=== PATIENT | male | born 1955 | race Caucasian/White ===

== ENCOUNTER 2019-05-21 14:00 | Outpatient (CLI) | payer MEDICARE, OTHER, SELFPAY ==
[2019-05-21 15:25] LABS: Prothrombin Time 13.3 Seconds (11.1-14.7)
[2019-05-21 15:26] LABS: Partial Thromboplastin Time 36.3 SECONDS (22.3-36.8)
== END 2019-05-21 14:01 | disposition home or self-care (01) ==
PROVIDERS: PCP Physician Assistant; Visit Provider Urology
DX: N28.89 Other specified disorders of kidney and ureter (principal)
CPT/HCPCS: 36415; 85610; 85730; 86850; 86900; 86901; 87086

== ENCOUNTER 2019-06-01 11:02 | Inpatient (IN) | payer MEDICARE, OTHER, SELFPAY ==
[2019-05-21 15:06] VITALS: BP 131/80; PULSE 82; RESP 18; TEMP 36.6; O2SAT 94; BMI 29.3
[2019-06-01] VITALS (11 sets, daily range): BP systolic 130–153; BP diastolic 72–88; PULSE 60–88; RESP 14–20; TEMP 36.1–36.8; O2SAT 96–100; BMI 28.8; BMI 29.9
[2019-06-01] MEDS: LACTATED RINGERS 1,000 ML 30 ML IV CONT ×2 (06:40→10:38)
--- NOTE | 2019-06-01 06:55 | WPDANESEPPF ---
Anes - Initial Pre Proc Eval Procedure: Operation Date: 06/01/19 07:30 Proposed Procedures p Hand-Assisted Laparoscopic Right Radical Nephrectomy, Possible Open - Luis Pono MD Date/Time: 06/01/19 06:55 Surgeon: Luis Poon MD Pre Op Diagnosis: Right Renal Mass Patient Data Age: 64 Gender: M Height: 5 ft 10 in Weight: 91.1 kg Last Vital Signs Temp 36.6 C 05/21/19 15:06 Pulse 82 05/21/19 15:06 Resp 18 05/21/19 15:06 BP 131/80 05/21/19 15:06 Pulse Ox 94 05/21/19 15:06 Allergies Allergy/AdvReac Type Severity Reaction Status Date / Time No Known Allergies Allergy Mild Verified 06/01/19 06:17 Home Medications Medication Instructions Recorded Confirmed Type fexofenadine [Caro Allergy] 180 mg PO DAILY 05/21/19 06/01/19 History lisinopril 20 mg PO DAILY 05/21/19 06/01/19 History pantoprazole 40 mg PO QAM 05/21/19 06/01/19 History pravastatin 20 mg PO DAILY 05/21/19 06/01/19 History ropinirole 1 mg PO BID 05/21/19 06/01/19 History zolpidem 10 mg PO HS 05/21/19 06/01/19 History Patient hx anesthesia problems: none Family hx anesthesia problems: none PMFSH Past Medical History Medical History GERD (gastroesophageal reflux disease) Hyperlipidemia Hypertension TRICIA (obstructive sleep apnea) Prostate cancer SVT (supraventricular tachycardia) Social History Social History Gender identity (if verbalized by the patient): Male Anes - Eval Final PreProcedure Day of Procedure 06/01/19 06:55 Heart: regular rate and rhythm Lungs: clear to auscultation Airway: Mallampati scale class 1 Neurological: alert and oriented Last oral intake: >/= 8 hours ASA classification: III Emergent: no Anesthetic plan: proceed Anesthesia type and monitoring: general ETT and standard monitoring Informed Consent: The patient's anesthetic plan and its attendant risks and benefits were discussed with the patient/family/POA. Questions were solicited and answers provided to the satisfaction of the patient/family/POA.
--- NOTE | 2019-06-01 07:22 | WPDHPUPDATE1 ---
History and Physical Update Update Date/Time: 06/01/19 07:22 History and Physical has been reviewed, including an updated exam of the patient. There are NO changes in the patient's condition. Risks, benefits, and alternatives have been discussed and questions answered. Patient agrees to proceed with procedure.
[2019-06-01] MEDS: ceFAZolin 2 GM/D5W 50 ML 2 GM/50 ML BAG IVPB (07:34)
[2019-06-01] MEDS: HEMOSTATIC MATRIX (SURGIFLO with THROMBIN) KIT 1 KIT XX (09:05)
--- NOTE | 2019-06-01 10:12 | P.OP_ITS ---
Procedure Note - Detailed Date of procedure: 06/01/19 Pre-op diagnosis: Right Renal Mass Post-op diagnosis: same Procedure performed: Hand assisted laparoscopic right nephrectomy Description of procedure: Patient was taken to the operative suite and correctly identified. Once general anesthesia was obtained he was placed in decubitus position right side up. All pressure points were padded. Sixteen Upper Sorbian Calvin had been placed. Incision was made just lateral and superior to the umbilicus. This was carried down to the rectus fascia which was incised. The peritoneal cavity was entered. GelPort was placed in abdomen insufflated to 15 mmHg pressure. Working ports were then placed in appropriate locations. There were 12 mm ports. A 5 mm port was placed just medial to the most superior port used for retraction of the liver. The white line of Toldt was incised and the colon was reflected medially. Duodenum was Kocherized. Patient's mass was located superiorly and posteriorly. We dissected the ureter off of the psoas muscle. We then worked our way up to the hilar area. The renal vein and artery was displaced inferiorly from the mass. We were able to isolate the artery and clipped it 3 times proximally and twice distally. It was transected. The vein was then transected using an endovascular staple. Was loosely attached anteriorly and thus was easily spared. Given that the mass was more posteriorly located we spared the adrenal gland. There was good hemostasis at this point time. All the other attachments were taken down. We placed to seal long with FloSeal and Surgicel over the hilar area and the adrenal area. All lap count needle count sponge counts were correct. Needed to extend the incision order remove the mass in its entirety. This is sent for pathologic review. Rectus fascia was closed using double looped PDS from both superiorly and inferiorly. We reapproximated the subcutaneous fat using 3 O chromic. Subcuticular stitches were then placed. Anesthetized the incisions with 1% lidocaine. Patient is taken recovery room stable condition. Anesthesia: GETA Surgeon: Luis Poon MD Estimated blood loss (mL): 50 Drains: No Packing: No Pathology: yes Complications: No immediate complications Condition: stable Disposition: PACU
[2019-06-01 13:04] LABS: Hemoglobin 14.4 g/dL (14.0-18.0)
--- NOTE | 2019-06-01 13:09 | ADMGEN ---
This patient, Dami Henderson, was admitted to [facility] Surg Room 324-02. Patient/family oriented to hospital policies and general routines including ID bracelet, bed and alarms, visiting hours, pain management, procedures, bathroom and other care routines, personal items, smoking policy, room service/diet, and visiting hours. Valuables list has been completed. Information on how to activate the Rapid Response Team has been discussed. Patient/Family are encouraged to report perceived risks to care and to ask questions if they do not understand what they are told or what they should do.
[2019-06-01 13:32] LABS: Blood Urea Nitrogen 16 mg/dL (9-20); Calcium 8.7 mg/dL (8.4-10.2); Carbon Dioxide 30 mmol/L (22-30); Chloride 102 mmol/L (98-107); Estimated CRCL calculation 52 ml/min; Estimated Glomerular Filt Rate 55; Glucose 150 mg/dL (75-110); Potassium 3.4 mmol/L (3.4-5.0); Sodium 137 mmol/L (137-145)
[2019-06-01] MEDS: DEXTROSE 5%/LACTATED RINGERS 1,000 ML 150 ML IV CONT (13:57)
[2019-06-01] MEDS: lisinopriL 20 MG TABLET PO (16:01)
[2019-06-01] MEDS: LORATADINE 10 MG TABLET PO (16:01)
[2019-06-01] MEDS: PRAVASTATIN SODIUM 20 MG TABLET PO (16:01)
[2019-06-01] MEDS: HYDROMORPHONE HCL 1 MG/ML INJ 0.5 MG IV PUSH (19:09)
[2019-06-01] MEDS: DOCUSATE SODIUM 100 MG CAPSULE PO (19:16)
--- NOTE | 2019-06-01 21:24 | PC.NURSE ---
Call initiated to Dr. Poon at 1445 requesting pain meds for range 0-6. Meds were available starting tomorrow which he said we could make available now.
[2019-06-01] MEDS: DEXTROSE 5%/LACTATED RINGERS 1,000 ML 100 ML IV CONT (21:42)
[2019-06-02 02:00] VITALS: BP 126/75; PULSE 70; RESP 20; TEMP 36.8; O2SAT 95
[2019-06-02 05:47] LABS: Basophils Percent Auto 0.2 % (0.2-1.2); Eosinophils Percent Auto 0.1 % (0-4.4); Hematocrit 37.3 % (42.0-52.0); Immature Granulocyte Absolute 0.04 K/mm3 (0.00-0.031); Immature Granulocyte Percent A 0.4 % (0-0.5); Lymphocytes Absolute Auto 1.01 K/mm3 (0.9-3.2); Lymphocytes Percent Auto 11.4 % (18.3-44.2); Mean Corpuscular HGB Conc 34.9 g/dl (32-36); Mean Corpuscular Hemoglobin 30.4 pg (26-34); Mean Corpuscular Volume 87.1 fl (80-100); Mean Platelet Volume 9.9 fl (7.4-10.4); Monocytes Absolute Auto 0.6 K/mm3 (0.1-0.6); Monocytes Percent Auto 6.5 % (2.6-8.5); Neutrophils Absolute Auto 7.2 K/mm3 (1.3-6.7); Neutrophils Percent Auto 81.4 % (45.5-73.1); Platelet Count Result 172 k/mm3 (150-375); Red Blood Count 4.28 M/mm3 (4.6-6.20); White Blood Count 8.9 K/mm3 (4.5-10.0)
[2019-06-02 06:00] VITALS: BP 114/66; PULSE 69; RESP 20; TEMP 37.1; O2SAT 94
[2019-06-02 06:02] LABS: Blood Urea Nitrogen 14 mg/dL (9-20); Calcium 8.2 mg/dL (8.4-10.2); Carbon Dioxide 29 mmol/L (22-30); Chloride 103 mmol/L (98-107); Estimated CRCL calculation 49 ml/min; Estimated Glomerular Filt Rate 51; Glucose 122 mg/dL (75-110); Potassium 3.8 mmol/L (3.4-5.0); Sodium 134 mmol/L (137-145)
[2019-06-02] MEDS: DEXTROSE 5%/LACTATED RINGERS 1,000 ML 100 ML IV CONT (08:23)
[2019-06-02] MEDS: LORATADINE 10 MG TABLET PO (08:24)
[2019-06-02] MEDS: PANTOPRAZOLE 40 MG TABLET PO (08:24)
[2019-06-02] MEDS: PRAVASTATIN SODIUM 20 MG TABLET PO (08:24)
[2019-06-02] MEDS: lisinopriL 20 MG TABLET PO (08:24)
[2019-06-02] MEDS: DOCUSATE SODIUM 100 MG CAPSULE PO (08:24)
--- NOTE | 2019-06-02 09:08 | P.PNAN_ITS ---
Anes - Prog Note Post-Op Date/Time: 06/02/19 09:08 Cardiovascular status: normal Respiratory status: normal Airway patency: baseline Mental status: baseline Post-Op hydration status: normal Vital Signs: Last Vital Signs Temp 37.1 C 06/02/19 06:00 Pulse 69 06/02/19 06:00 Resp 20 06/02/19 06:00 BP 114/66 06/02/19 06:00 Pulse Ox 94 06/02/19 06:00 I/O: Intake & Output 06/01/19 06/02/19 06/02/19 23:59 07:59 15:59 Intake Total 2320 1200 Output Total 1200 2150 Balance 1120 -950 Laboratory Tests 06/02/19 05:34 06/02/19 05:34 06/01/19 06/01/19 06/02/19 12:55 13:13 05:34 WBC 8.9 RBC 4.28 L Hgb 14.4 13.0 L Hct 42.0 37.3 L MCV 87.1 MCH 30.4 MCHC 34.9 RDW 12.0 Plt Count 172 MPV 9.9 Immature Gran % (Auto) 0.4 Neut % (Auto) 81.4 H Lymph % (Auto) 11.4 L [place] % (Auto) 6.5 Eos % (Auto) 0.1 Baso % (Auto) 0.2 Lymph # (Auto) 1.01 [place] # (Auto) 0.6 Eos # (Auto) 0.0 Baso # (Auto) 0.0 Abs Immat Gran (auto) 0.04 H Absolute Neuts (auto) 7.2 H Absolute Nucleated RBC 0.0 Nucleated RBC % 0.0 Sodium 137 Potassium 3.4 Chloride 102 Carbon Dioxide 30 BUN 16 Creatinine 1.30 Estim Creat Clear Calc 52 Estimated GFR 55 L Glucose 150 H Calcium 8.7 06/02/19 05:34 WBC RBC Hgb Hct MCV MCH MCHC RDW Plt Count MPV Immature Gran % (Auto) Neut % (Auto) Lymph % (Auto) [place] % (Auto) Eos % (Auto) Baso % (Auto) Lymph # (Auto) [place] # (Auto) Eos # (Auto) Baso # (Auto) Abs Immat Gran (auto) Absolute Neuts (auto) Absolute Nucleated RBC Nucleated RBC % Sodium 134 L Potassium 3.8 Chloride 103 Carbon Dioxide 29 BUN 14 Creatinine 1.40 H Estim Creat Clear Calc 49 Estimated GFR 51 L Glucose 122 H Calcium 8.2 L Post-procedural complaints: none Patient Feedback: Patient satisfied with anesthetic care.
[2019-06-02 10:24] VITALS: BP 151/83; PULSE 79; RESP 18; TEMP 36.9; O2SAT 97
--- NOTE | 2019-06-02 11:08 | WPDUROPN2 ---
Progress Note: A&P Assessment and Plan (1) Renal mass, right: Code(s): N28.89 - Other specified disorders of kidney and ureter Status: Acute Assessment and Plan: Postop day 1. From hand assisted laparoscopic right nephrectomy Doing well overall. Remove Calvin this morning. Most likely discharge later today if doing well and tolerating diet Follow-up in 2-3 weeks time call for appointment Subjective Subjective Date/Time Seen: 06/02/19 11:08 Post Op day: 1 Principal diagnosis: Right renal mass. Status post hand assisted laparoscopic right nephrectomy Interval history: Dami is doing well the present time. Taking minimal pain meds if any at all at this time. Calvin draining clear urine Review of Systems Review of Systems: All systems reviewed & are unremarkable except as noted in HPI and below Exam Const: General: comfortable HENMT: General nose exam: Normal nares present Resp: Effort & Inspection: normal respiratory effort Cardio: Rate: regular rate Rhythm: regular rhythm Urinary Catheter: Urinary Catheter: patent and draining and urine clear Objective Data Vital Signs Vital Signs: Vital Signs - 24 hr 06/01/19 11:10 06/01/19 11:25 06/01/19 11:32 Temperature 36.1 C L 36.3 C L Pulse Rate 72 75 63 Respiratory Rate 19 14 16 Blood Pressure 140/79 130/85 144/73 H Pulse Oximetry 100 96 96 06/01/19 11:47 06/01/19 12:17 06/01/19 14:00 Temperature 36.3 C L 36.3 C L 36.3 C L Pulse Rate 69 70 70 Respiratory Rate 18 18 18 Blood Pressure 135/72 143/81 H 139/74 Pulse Oximetry 97 97 97 06/01/19 18:00 06/01/19 22:00 06/02/19 02:00 Temperature 36.8 C 36.8 C 36.8 C Pulse Rate 88 73 70 Respiratory Rate 20 16 20 Blood Pressure 145/79 H 131/72 126/75 Pulse Oximetry 97 96 95 06/02/19 06:00 06/02/19 10:24 Temperature 37.1 C 36.9 C Pulse Rate 69 79 Respiratory Rate 20 18 Blood Pressure 114/66 151/83 H Pulse Oximetry 94 97 Intake/Output Intake/Output: Intake & Output 05/30/19 05/31/19 06/01/19 06/02/19 23:59 23:59 23:59 23:59 Intake Total 2470 1560 Output Total 1200 2150 Balance 1270 -590 Meds/Results Medications: Active Medications Generic Name Dose Route Start Last Admin Trade Name Freq PRN Reason Stop Dose Admin Hydrocodone Bitart/Acetaminophen 1 tab 06/01/19 14:34 06/01/19 16:03 [place] 5-325 Mg PO 1 tab Q4H PRN Administration Pain Rated 1-3 Hydrocodone Bitart/Acetaminophen 2 tab 06/01/19 14:35 [place] 5-325 Mg PO Q4H PRN Pain Rated 4-6 Cephalexin HCl 500 mg 06/02/19 12:00 Keflex Capsule PO Q6HR ROGER Docusate Sodium 100 mg 06/01/19 17:00 06/02/19 08:24 Colace Capsule PO 100 mg BID ROGER Administration Hydromorphone HCl 0.5 mg 06/01/19 11:32 06/01/19 19:09 Dilaudid Inj IV PUSH 0.5 mg Q4H PRN Administration Pain Rated 7-10 Dextrose/Lactated Ringer's 1,000 mls @ 100 mls/hr 06/01/19 11:32 06/02/19 08:23 Dextrose 5%/Lactated Ringers IV CONT 100 mls/hr .Q10H ROGER Administration Lisinopril 20 mg 06/01/19 13:15 06/02/19 08:24 Prinivil PO 20 mg DAILY ROGER Administration Loratadine 10 mg 06/01/19 13:15 06/02/19 08:24 Claritin PO 10 mg DAILY ROGER Administration Naloxone HCl 0.1 mg 06/01/19 11:32 Narcan IV PUSH Q2M PRN Opiate Reversal Ondansetron HCl 4 mg 06/01/19 11:32 Zofran Inj IV PUSH Q6H PRN Nausea And Vomiting Pantoprazole Sodium 40 mg 06/02/19 09:00 06/02/19 08:24 Protonix PO 40 mg QAM ROGER Administration Pravastatin Sodium 20 mg 06/01/19 13:15 06/02/19 08:24 Pravastatin Sodium PO 20 mg DAILY ROGER Administration Ropinirole HCl 1 mg 06/01/19 17:00 06/02/19 08:24 Requip PO 1 mg BID ROGER Administration Labs Labs: Laboratory Results - last 24 hr 06/01/19 06/01/19 06/02/19 12:55 13:13 05:34 WBC 8.9 RBC 4.28 L Hgb 14.4 13.0 L Hct 42.0 37.3 L MCV 87.1 MCH 30.4 MCHC
[2019-06-02] MEDS: CEPHALEXIN 500 MG CAPSULE PO (12:44)
[2019-06-02 14:17] VITALS: BP 135/74; PULSE 74; RESP 16; TEMP 37.1; O2SAT 96
--- NOTE | 2019-07-02 13:32 | DS_ITS ---
DATE OF DISCHARGE: 06/02/2019 PREOPERATIVE DIAGNOSIS: Right renal mass. POSTOPERATIVE DIAGNOSIS: Right renal mass. HOSPITAL COURSE: The patient underwent hand-assisted laparoscopic right nephrectomy with Dr. Luis Poon on June 01, 2019. The patient tolerated the procedure well, was transferred to recovery in stable condition and to the floor for further observation. The patient is okay to be discharged home on June 02, 2019. The patient should not drive for 2 weeks. No straining for activity. Diet as tolerated. The patient will follow up in 2 weeks. Resume all home medications in addition to hydrocodone and acetaminophen 2 tablets by mouth every 4 hours as needed. D I MT: [place]
== END 2019-06-02 16:20 | disposition home or self-care (01) | DRG 657 ==
LOC: ANH3MEDSUR 06-02 14:04
PROVIDERS: Admitting Provider Urology; Visit Provider Urology
PROC: 0TT00ZZ Resection of Right Kidney, Open Approach (ICD-10-PCS; principal; 2019-06-01 07:30)
DX: C64.1 Malignant neoplasm of right kidney, except renal pelvis (principal); I47.1 Supraventricular tachycardia; K21.9 Gastro-esophageal reflux disease without esophagitis; E78.5 Hyperlipidemia, unspecified; I10 Essential (primary) hypertension; G47.33 Obstructive sleep apnea (adult) (pediatric); Z85.46 Personal history of malignant neoplasm of prostate; Z87.891 Personal history of nicotine dependence
CPT/HCPCS: 36415; 80048; 85014; 85018; 85025; 88307; A9270; J0330; J0690; J1100; J1170; J2250; J2370; J2405; J2704; J2710; J3010; J7120; J7121

== ENCOUNTER 2019-09-22 07:16 | Outpatient (CLI) | payer MEDICARE, OTHER, SELFPAY ==
--- NOTE | ~2019-09-22 | XR_ITS ---
EXAMINATION: XR chest 2V DATE: 09/22/2019 07:30 INDICATION: Malignant neoplasm of the right kidney TECHNIQUE: PA and lateral views of the chest are obtained. COMPARISON: None available FINDINGS: The lungs are free of acute opacities. There is no pleural effusion or pneumothorax. The ca rdiomediastinal silhouette is normal. There is moderate thoracic spondylosis. Suture anchors are note d in the left humeral head. IMPRESSION: 1. No acute cardiopulmonary abnormality. Reviewed, dictated and finalized at location A.
--- NOTE | ~2019-09-22 | CT_ITS ---
EXAMINATION: CT abdomen pelvis wo/w con DATE: 09/22/2019 08:18 INDICATION: Malignant neoplasm of the right kidney TECHNIQUE: Computed tomography (CT) of the abdomen and pelvis was performed without and with 100 mL O mnipaque-350 intravenous contrast. Automated exposure control and iterative reconstruction technique were employed. The dose-length product was 1075.23 mGy-cm. COMPARISON: 04/29/2019 FINDINGS: Mild dependent atelectasis in the bilateral lower lobes. Heart size is normal. Atherosclerotic rubin ry artery calcification. No pericardial or pleural effusion. Again seen is a bilobed configuration to the gallbladder with mild wall thickening at the fundus is separate from the proximal gallbladder by a septation or wall fold likely sequela of chronic cholecystitis. No intra or extrahepatic biliary d uctal dilation. Pancreas, spleen, bilateral adrenal glands and left kidney are normal. Postoperative change of interval right nephrectomy for reported renal carcinoma with surgical clips the gallbladder fossa and anterior abdominal wall scarring in the right upper quadrant. No evident abnormal soft tis arabella density at the right renal fossa to suggest residual/recurrent disease. There is moderate scatter ed colonic diverticulosis without adjacent inflammatory change to suggest diverticulitis. Small bowel and appendix are normal. Bladder is normal. No free intraperitoneal gas or fluid. No pathologically enlarged abdominal or pelvic lymphadenopathy. Very small bilateral fat-containing inguinal hernias. I ntramuscular lipoma along the distal right iliacus muscle. Transitional thoracolumbar and lumbosacral segments with mild spondylosis. IMPRESSION: 1. Interval right nephrectomy for reported renal cell carcinoma with no evident residual, recurrent o r metastatic disease. 2. Wall thickening at the gallbladder fundus with fold versus septation at the mid gallbladder which likely represent sequela of chronic cholecystitis. 3. Diverticulosis. Reviewed, dictated and finalized at location A. IMPRESSION: 1. Interval right nephrectomy for reported renal cell carcinoma with no evident residual, recurrent or metastatic disease. 2. Wall thickening at the gallbladder fundus with fold versus septation at the mid gallbladder which likely represent sequela of chronic cholecystitis. 3. Diverticulosis.
[2019-09-22 08:06] LABS: Estimated Glomerular Filt Rate 44
== END 2019-09-22 07:17 | disposition home or self-care (01) ==
PROVIDERS: Visit Provider Urology
DX: C64.1 Malignant neoplasm of right kidney, except renal pelvis (principal); Z90.5 Acquired absence of kidney; R93.89 Abnormal findings on diagnostic imaging of other specified body structures; K57.90 Diverticulosis of intestine, part unspecified, without perforation or abscess without bleeding
CPT/HCPCS: 36415; 71046; 74178; Q9967

== ENCOUNTER 2020-01-04 08:53 | Outpatient (CLI) | payer MEDICARE, OTHER, SELFPAY ==
[2020-01-04 09:47] LABS: Creatinine Urine 88.4 mg/dL; Sodium Urine Random 150 meq/L; Total Protein Urine Random 13 mg/dL
[2020-01-04 09:51] LABS: Albumin Level 4.2 g/dL (3.5-5.1); Anion Gap 6 mmol/L (8-16); Blood Urea Nitrogen 30 mg/dL (9-20); Calcium 9.1 mg/dL (8.4-10.2); Carbon Dioxide 29 mmol/L (22-30); Chloride 104 mmol/L (98-107); Estimated Glomerular Filt Rate 38; Glucose 106 mg/dL (75-110); Phosphorus 2.3 mg/dL (2.5-4.5); Potassium 4.9 mmol/L (3.4-5.0); Sodium 139 mmol/L (137-145)
[2020-01-04 09:56] LABS: Complement C3 89 mg/dL (88-165)
[2020-01-07 22:45] LABS: Albumin 4.2 g/dL (3.8-4.8); Alpha 1 Globulin 0.3 g/dL (0.2-0.3); Alpha 2 Globulin 0.7 g/dL (0.5-0.9); Beta 1 Globulin 0.4 g/dL (0.4-0.6); Gamma Globulin 1.2 g/dL (0.8-1.7); Protein, Total 7.1 g/dL (6.1-8.1)
[2020-01-07 22:50] LABS: Anti Glomerular Basement Memb <1.0 AI (<1.0)
[2020-01-08 05:48] LABS: Creatinine, Random Urine 88 mg/dL (20-320); Total Protein/Creatinine Ratio 250 mg/g creat (22-128)
[2020-01-10 11:58] LABS: ANCA Screen Negative (Negative)
== END 2020-01-04 08:54 | disposition home or self-care (01) ==
PROVIDERS: Visit Provider Internal Medicine Nephrology
DX: R94.4 Abnormal results of kidney function studies (principal); I10 Essential (primary) hypertension; R80.8 Other proteinuria
CPT/HCPCS: 36415; 80069; 82570; 83520; 84155; 84156; 84165; 84166; 84300; 85999; 86021; 86160; 86225

== ENCOUNTER 2020-04-22 09:00 | Outpatient (CLI) | payer MEDICARE, OTHER, SELFPAY ==
[2020-04-22 09:48] LABS: Creatinine Urine 56.5 mg/dL; Total Protein Urine Random 11 mg/dL; Ur Ttl Prot Creatinine Ratio 0.19 mg/mg (0-0.20)
[2020-04-22 11:14] LABS: Vitamin D 25 Hydroxy 29.1 ng/mL
[2020-04-22 14:11] LABS: Albumin Level 4.2 g/dL (3.5-5.1); Anion Gap 6 mmol/L (8-16); Blood Urea Nitrogen 32 mg/dL (9-20); Calcium 8.8 mg/dL (8.4-10.2); Carbon Dioxide 28 mmol/L (22-30); Chloride 104 mmol/L (98-107); Estimated Glomerular Filt Rate 43; Glucose 99 mg/dL (75-110); Phosphorus 2.3 mg/dL (2.5-4.5); Potassium 4.8 mmol/L (3.4-5.0); Sodium 138 mmol/L (137-145)
[2020-04-22 14:23] LABS: Parathyroid Intact 100.2 pg/mL (7.5-53.5)
== END 2020-04-22 09:01 | disposition home or self-care (01) ==
PROVIDERS: Referring Provider Urology; Visit Provider Internal Medicine Nephrology
DX: I12.9 Hypertensive chronic kidney disease with stage 1 through stage 4 chronic kidney disease, or unspecified chronic kidney disease (principal); N18.32 Chronic kidney disease, stage 3b; Z90.5 Acquired absence of kidney
CPT/HCPCS: 36415; 80069; 82306; 82570; 83970; 84156

== ENCOUNTER 2020-08-18 10:43 | Outpatient (CLI) | payer MEDICARE, OTHER, SELFPAY ==
[2020-08-18 11:25] LABS: Creatinine Urine 53.8 mg/dL; Total Protein Urine Random 11 mg/dL
[2020-08-18 11:26] LABS: Albumin Level 4.5 g/dL (3.5-5.1); Anion Gap 11 mmol/L (8-16); Blood Urea Nitrogen 29 mg/dL (9-20); Calcium 9.5 mg/dL (8.4-10.2); Carbon Dioxide 24 mmol/L (22-30); Chloride 105 mmol/L (98-107); Estimated Glomerular Filt Rate 41; Glucose 98 mg/dL (75-110); Potassium 4.6 mmol/L (3.4-5.0); Sodium 140 mmol/L (137-145)
[2020-08-18 12:03] LABS: Vitamin D 25 Hydroxy 49.8 ng/mL
== END 2020-08-18 10:44 | disposition home or self-care (01) ==
PROVIDERS: Visit Provider Internal Medicine Nephrology
DX: E55.9 Vitamin D deficiency, unspecified (principal); I12.9 Hypertensive chronic kidney disease with stage 1 through stage 4 chronic kidney disease, or unspecified chronic kidney disease; N18.32 Chronic kidney disease, stage 3b; Z90.5 Acquired absence of kidney
CPT/HCPCS: 36415; 80069; 82306; 82570; 84156

== ENCOUNTER 2020-12-22 10:44 | Outpatient (CLI) | payer MEDICARE, OTHER, SELFPAY ==
[2020-12-22 12:16] LABS: Albumin Level 4.7 g/dL (3.5-5.1); Anion Gap 8 mmol/L (8-16); Blood Urea Nitrogen 25 mg/dL (9-20); Calcium 8.8 mg/dL (8.4-10.2); Carbon Dioxide 26 mmol/L (22-30); Chloride 105 mmol/L (98-107); Estimated Glomerular Filt Rate 43; Glucose 105 mg/dL (65-110); Phosphorus 2.6 mg/dL (2.5-4.5); Potassium 4.9 mmol/L (3.4-5.0); Sodium 139 mmol/L (137-145)
[2020-12-22 12:31] LABS: Creatinine Urine 66.6 mg/dL; Total Protein Urine Random 6 mg/dL; Ur Ttl Prot Creatinine Ratio 0.09 mg/mg (0-0.20)
== END 2020-12-22 10:45 | disposition home or self-care (01) ==
PROVIDERS: Visit Provider Internal Medicine Nephrology
DX: I12.9 Hypertensive chronic kidney disease with stage 1 through stage 4 chronic kidney disease, or unspecified chronic kidney disease (principal); N18.32 Chronic kidney disease, stage 3b; Z90.5 Acquired absence of kidney
CPT/HCPCS: 36415; 80069; 82570; 84156

== ENCOUNTER 2021-04-18 11:52 | Outpatient (CLI) | payer MEDICARE, OTHER, SELFPAY ==
[2021-04-18 13:01] LABS: Albumin Level 4.5 g/dL (3.5-5.1); Anion Gap 9 mmol/L (8-16); Blood Urea Nitrogen 29 mg/dL (9-20); Calcium 9.2 mg/dL (8.4-10.2); Carbon Dioxide 24 mmol/L (22-30); Chloride 104 mmol/L (98-107); Estimated Glomerular Filt Rate 40; Glucose 107 mg/dL (65-110); Phosphorus 3.1 mg/dL (2.5-4.5); Potassium 4.4 mmol/L (3.4-5.0); Sodium 137 mmol/L (137-145)
[2021-04-18 13:03] LABS: Creatinine Urine 124.1 mg/dL; Total Protein Urine Random 7 mg/dL; Ur Ttl Prot Creatinine Ratio 0.06 mg/mg (0-0.20)
[2021-04-18 13:12] LABS: Parathyroid Intact 126.9 pg/mL (7.5-53.5)
[2021-04-18 13:30] LABS: Vitamin D 25 Hydroxy 41.3 ng/mL
== END 2021-04-18 11:53 | disposition home or self-care (01) ==
LOC: ANHLAB 11:55
PROVIDERS: Visit Provider Internal Medicine Nephrology
DX: E55.9 Vitamin D deficiency, unspecified (principal); I12.9 Hypertensive chronic kidney disease with stage 1 through stage 4 chronic kidney disease, or unspecified chronic kidney disease; N18.32 Chronic kidney disease, stage 3b; Z90.5 Acquired absence of kidney
CPT/HCPCS: 36415; 80069; 82306; 82570; 83970; 84156

== ENCOUNTER 2021-09-06 16:13 | Outpatient (CLI) | payer MEDICARE, OTHER, SELFPAY ==
[2021-09-06 16:55] LABS: Albumin Level 4.7 g/dL (3.5-5.1); Anion Gap 9 mmol/L (8-16); Blood Urea Nitrogen 29 mg/dL (9-20); Calcium 8.8 mg/dL (8.4-10.2); Carbon Dioxide 21 mmol/L (22-30); Chloride 109 mmol/L (98-107); Estimated Glomerular Filt Rate 33; Glucose 88 mg/dL (65-110); Phosphorus 3.6 mg/dL (2.5-4.5); Potassium 4.4 mmol/L (3.4-5.0); Sodium 139 mmol/L (137-145)
[2021-09-06 20:05] LABS: Creatinine Urine 127.6 mg/dL; Total Protein Urine Random 6 mg/dL; Ur Ttl Prot Creatinine Ratio 0.05 mg/mg (0-0.20)
== END 2021-09-06 16:14 | disposition home or self-care (01) ==
PROVIDERS: Visit Provider Internal Medicine Nephrology
DX: I12.9 Hypertensive chronic kidney disease with stage 1 through stage 4 chronic kidney disease, or unspecified chronic kidney disease (principal); N18.32 Chronic kidney disease, stage 3b; Z90.5 Acquired absence of kidney; E21.1 Secondary hyperparathyroidism, not elsewhere classified; E55.9 Vitamin D deficiency, unspecified
CPT/HCPCS: 36415; 80069; 82570; 83735; 84156

== ENCOUNTER 2024-06-30 07:33 | Outpatient (CLI) | payer MEDICARE, SELFPAY ==
--- NOTE | ~2024-06-30 | CT_ITS ---
CT of the Abdomen: Indication: Renal carcinoma Technique: 2.5 mm axial scans were obtained through the abdomen prior to and following intravenous a dministration of 100 cc of Omnipaque 350. Dose reduction technique was used on this scan by utilizing automated exposure control and iterative reconstruction technique. The dose-length product (DLP) was 929.14 mGy-cm. COMPARISON: 09/21/2021 Findings: Scans through the lung bases are unremarkable. The liver, spleen, pancreas, gallbladder, adrenals and left kidney are within normal limits. Status p ost right nephrectomy. Stable cystic mass in the gallbladder fossa region. No evidence of aortic aneu rysm. No lymphadenopathy. Visualized bowel loops are unremarkable. No ascites. Impression: No change from prior exam. No evidence for active malignancy or metastatic disease. Status post right nephrectomy. Stable cystic mass at the gallbladder fossa region. Reviewed, dictated and finalized at [facility]. Impression: No change from prior exam. No evidence for active malignancy or metastatic dise ase. Status post right nephrectomy. Stable cystic mass at the gallbladder fossa region.
--- NOTE | ~2024-06-30 | XR_ITS ---
CHEST RADIOGRAPH, PA AND LATERAL CLINICAL HISTORY: MAL DAYANA OF R KIDNEY . COMPARISON: 09/22/2019 TECHNIQUE: PA and lateral views of the chest. FINDINGS The cardiomediastinal silhouette is unremarkable. The lungs are clear. Visualized osseous structures and soft tissues are unremarkable. IMPRESSION: No focal infiltrate or effusion. Reviewed, dictated and finalized at location A.
--- OUTSIDE RECORDS SUMMARY | 2024-06-30 07:39 | XMS_ITS | Clinical Summary ---
Author Organization [facility] Address [address] [place] [id number] Phone Care Team Providers Care Customer Service Correspondence Clerk Name Role Phone Citlali Gonzáles Primary Care Provider [phone] Allergies Active Allergy Reactions Criticality Noted Date Comments Amlodipine Swelling 10/31/2017 Medications fexofenadine (VANE) 180 MG tablet Take 180 mg by mouth daily Active metoprolol tartrate (LOPRESSOR) 25 MG tablet Take 25 mg by mouth Active pantoprazole (PROTONIX) 40 MG EC tablet Take 40 mg by mouth 2 (two) times a day 09/28/2019 Active pravastatin (PRAVACHOL) 20 MG tablet Take 20 mg by mouth 1 (one) time each day 09/10/2019 Active lisinopril (PRINIVIL,ZESTR IL) 20 MG tablet Take 20 mg by mouth daily 02/16/2019 Active rOPINIRole (REQUIP) 1 MG tablet TAKE 1 TABLET BY MOUTH NIGHTLY AT BEDTIME. 03/21/2020 Active gabapentin (NEURONTIN) 100 MG capsule TAKE 1 CAPSULE (100 MG TOTAL) BY MOUTH THREE TIMES DAILY. 09/04/2021 Active Active Problems Problem Noted Date Diagnosed Date Degeneration of lumbar intervertebral disc 09/29 MRI of lumbar spine abnormal 09/29/2021 Personal history of malignant neoplasm 0 Overview (12/28/2020): R - nephrectomy 2019 R - nephrectomy 2019 R - nephrectomy 2019 R - nephrectomy 2020 Dyslipidemia 12/03/2019 Essential hypertension 12/03/2019 Renal mass 12/03/2019 Supraventricular tachycardia 12/03/2019 Rupture of wrist ligament 10/22/2018 Overview (12/28/2020): Added automatically from request for surgery [id number] Added automatically from request for surgery [id number] Added automatically from request for surgery [id number] Added automatically from request for surgery [id number] Rupture of wrist ligament 10/22/2018 Overview (12/28/2020): Added automatically from request for surgery [id number] Carpal tunnel syndrome 02/25/2017 Numbness of finger 02/25/2017 Obstructive sleep apnea syndrome 03/29/2016 Pain in shoulder 03/08/2016 Malignant neoplasm of prostate 08/03/2015 Overview (08/24/2020): dr braun needs psa dr braun needs psa Knee pain 02/25/2014 Immunizations Immunization Administration Dates Next Due Fluzone 18-64 Years 11/30/2020 Influenza Split High Dose Pr eservative Free IM 01/07/2022 Influenza, Injectable, Mdck, Preservative Free, Quadrivalt 12/25/2018 Influenza, Injectable, Quadrivalent 12/21/2019 Influenza, Injectable, Quadr ivalent, Preservative Free 12/18/2017,01/20/2015 Influenza, Quadrivalent 12/25/2018 Influenza, Unspecified 12/21/2019,2019,12/25/2018,12/18,01/21/2015,01/14/2014,04/04/2012 ,02/07/2005 Pneumococcal Polysaccharide 12/15/2019 Sars-cov-2, Unspecified 05/24/2020 Td 12/12/2004 Tdap 10/17/2020,09/15/2010 Zoster 04/06/2014 Zoster Recombinant 10/02/2017,07/16/2017 Family History Medical History Relation Comments Diabetes mellitus Father Gout Father Heart disease Father Hypertension Father Kidney disease Father Stroke Father Cancer Mother Diabetes Mother Heart disease Mother Kidney disease Mother Relation Status Comments Father Mother Social History Tobacco Use Types Packs/Day Years Used Date Smoking Tobacco: Former Smokeless Tobacco: Never Tobacco Cessation:Counseling Given: Not Answered Alcohol Use Standard Drinks/Week Comments Yes 0 (1 standard drink = 0.6 oz pur e alcohol) social use Sex and Gender Information Value Date Recorded Sex Assigned at Not on file Legal Sex Male 10:18 AM MDT Gender Identity Not on file Sexual Orientation Not on file Last Filed Vital Signs Vital Sign Reading Time Taken Comments Blood Pressure 134/76 01/24/2022 2:12 PM E D TECH Pulse - - Temperature 35.8 C (96.5 F) 01/24/2022 2:12 PM E D TECH Respiratory Rate 18 01/24/2022 2:12 PM E D TECH Oxygen Saturation - - Inhaled Oxygen Concentration - - Weight 94.3 kg (207 lb 12.8 oz) 01/24/2022 2:12 PM E D TECH Height 177.8 cm (5' 10 ) 01/24/2022 2:12 PM E D TECH Body Mass Index 29.82 01/24/2022 2:12 PM E D TECH Plan of Treatment Health Maintenance Due Date Last Done Comments Pneumococcal PPSV23/PCV13 65 + Years / Low and Medium Risk (2 of 3 - PCV) 12/14/2020 12/15/2019 Influenza Vaccine (Season Ended) 2024 12/21/2019, 11/30/2019, 12/25/2018, Additional history exists Insurance MEDICARE [employer] [place] [address] Care Teams Customer Service Correspondence Clerk Relationship Specialty Start Date End Date Citlali Gonzáles PA [address] [facility] [address] [place] [address] PCP - General Internal Medicine 11/02/19
--- OUTSIDE RECORDS SUMMARY | 2024-06-30 07:39 | XMS_ITS | Clinical Summary ---
Author Organization [facility] Address Formerly [facility], later [facility] [place] [address] Care Team Providers Care Fire Prevention Inspector Name Role Phone Aly Lara MD Unavailable Citlali Gonzáles Primary Care Provider [phone] Allergies Active Allergy Reactions Criticality Noted Date Comments Amlodipine Swelling 10/31/2017 Medications metoprolol tartrate (LOPRESSOR) 25 MG tabletIndication s:Palpitations TAKE 1 TABLET BY MOUTH DAILY NEEDED. ONLY WHEN NEEDED 90 tablet 1 08/18/19 23 Active pantoprazole EC (PROTONIX) 40 MG tabletIndication s:Gastroesophage al reflux disease without esophagitis Take 1 tablet (40 mg total) by mouth 2 (two) times daily. 180 tablet 3 01/01/20 24 Active pravastatin (PRAVACHOL) 40 MG tabletIndication s:Dyslipidemia Take 1 tablet (40 mg total) by mouth daily. 90 tablet 3 01/01/20 24 Active Doxepin HCl 6 MG TabIndications:P rimary insomnia TAKE 1 TABLET BY MOUTH NIGHTLY NEEDED 30 tablet 01/30/20 24 Active lisinopril (PRINIVIL) 10 MG tabletIndication s:Essential (primary) hypertension Take 1 tablet (10 mg total) by mouth daily. 90 tablet 3 06/12/19 25 Active lisinopril (PRINIVIL) 10 MG tabletIndication s:Essential (primary) hypertension Take 1 tablet (10 mg total) by mouth 2 (two) times a day. 180 tablet 3 06/06/19 24 025 Discontinued guaiFENesin-code ine (GUAIFENESIN AC) 100-10 MG/5ML syrupIndications :Cough Take 5 mLs by mouth every 6 (six) hours as needed for Cough. Indications : Cough 100 mL 03/17/20 24 025 Discontinued Active Problems Problem Noted Date Diagnosed Date Spinal stenosis of lumbar re gion without neurogenic claudication 09/29/2021 Radiculopathy, lumbar region 09/29/2021 Other intervertebral disc displacement, lumbar r egion 09/29/2021 Other intervertebral disc degeneration, lumbar r egion 09/29/2021 Spondylolisthesis of lumbar region 09/29/2021 Foraminal stenosis of lumbar region 09/29/2021 Abnormal MRI, lumbar spine 09/29/2021 Rupture of ligament of wrist 10/22/2018 Overview (11/29/2020): Added automatically from request for surgery [id number] Added automatically from request for surgery [id number] Tear of right scapholunate ligament 10/22/2018 Overview (11/29/2020): Added automatically from request for surgery [id number] Carpal tunnel syndrome 02/25/2017 TRICIA (obstructive sleep apnea) 03/29/2016 Prostate cancer ([facility]) 08/03/2015 Overview (07/02/2018): dr poon needs psa Malignant neoplasm of prostate ([facility]) 08/03/2015 Overview (11/29/2020): dr poon needs psa dr poon needs psa Essential hypertension Supraventricular tachycardia ([facility]) Dyslipidemia Resolved Problems Problem Noted Date Diagnosed Date Resolved Date History of kidney cancer 12/24/201901/2022 Overview (12/24/2019): R - nephrectomy 2019 Personal history of malignant neoplasm 12/24/2019 10/26/2021 Overview (11/29/2020): R - nephrectomy 2019 R - nephrectomy 2020 Renal mass 10/26/2021 Encounters Date Type Department Care Team Description 06/11/2024 8:30 AM CDT Office Visit [facility] [address] [facility] [address] Aly Lara MD Follow Up; Hypertension; Lipids 06/11/2024 Travel from Last 3 Months Immunizations Immunization Administration Dates Next Due Flucelvax 6 Months+ (Prefill ed Syringe) 12/25/2018 Fluzone 6 Months+ Quad (0.5 mL Prefilled Syringe) 12/18/2017,01/20/2015 Fluzone High Dose - >Age 65 (Prefilled Syringe) 01/07/2022,11/30/2020 Influenza Adult (Generic) 12/21/2019,,12/25/2018,2017,01/21/2015,01/14/2014,04/04/2012,1 04/09/2004 MODERNA COVID-19 (12+) MRNA, LNP-S, PF, 100 MCG/ 0.5 ML DOSE 04/28/2020,03/31/2020 PFIZER COVID-19 (ORIGINAL FORMULATION, PURPLE CAP) mRNA, LNP-S, PF, 30 MCG/0.3 ML DOSE 02/23/2021 Pneumococcal (Pneumovax 23) 12/15/2019 Pneumococcal (Prevnar 20) 12/07/2022 Shingrix 10/02/2017,07/16/2017 Td 12/12/2004 Tdap (Generic) 07/31/2022,10/17/2020,09/15/2010 Zoster (Zostavax) 28238 Unt/0.65Ml 04/06/2014 Family History Medical History Relation Comments Diabetes Father Heart Disease Father Hypertension Father ND Father Stroke Father Cancer Mother stomach, kidney Family history is positive f or Coronary Artery Disease, Diabetes, Hyperlipidemia / Dyslipidemia, Hypertension and Stroke. 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 file Not on file Last Filed Vital Signs Vital Sign Reading Time Taken Comments Blood Pressure 118/68 06/11/2024 8:38 AM CDT Pulse 52 06/11/2024 8:38 AM CDT Temperature 36.3 C (97.3 F) 03/12/2024 8:15 AM BOX ATTACHER Respiratory Rate 18 03/12/2024 8:15 AM BOX ATTACHER Oxygen Saturation 97% 03/12/2024 8:15 AM BOX ATTACHER Inhaled Oxygen Concentration - - Weight 95.7 kg (211 lb) 06/11/2024 8:38 AM CDT Height 177.8 cm (5' 10 ) 06/11/2024 8:38 AM CDT Body Mass Index 30.28 06/11/2024 8:38 AM CDT Plan of Treatment Upcoming Encounters Date Type Department Care Team (Late st Contact Info) Description 06/10/2025 8:30 AM CDT Office Visit [facility] [address] Ora Mariee, ANP-[facility]. [place] [address] [place], [place] [id number] Health Maintenance Due Date Last Done Comments Annual Medicare Wellness Visit 2019 COVID-19 Vaccine ( season) 2023 02/23/2021, 04/28/2020, 03/31/2020 PHQ-2 (Physician [place]) 03/18/2024 01/01/2024 Colorectal Cancer Screening Colonoscopy (10 Years) 05/02/2026 05/02/2016 RSV Immunization or 60+ Years (1 - 1-dose 75+ series) 2029 DTaP, Tdap and Td Vaccines (4 - Td or Tdap) 07/31/2032 07/31/2022, 10/17/2020, 09/15/2010, Additional history exists Zoster Vaccines Completed 10/02/2017, 05/0 03/2017, 04/06/2014 AAA SCREENING Completed 10/06/2020, 03/18, 04/29/2019 Hepatitis C Completed 11/10/2021 Pneumococcal Vaccine: 50+ Years Completed 12/07/2022, 12/15/2019 Meningococcal B Vaccine Aged Out No l onger eligible based on patient's age to complete this topic Meningococcal Vaccine Aged Out No zeb kami eligible based on patient's age to complete this topic RSV Immunizations Under 20 Months Aged Out No longer eligible based on patient's age to complete this topic Procedures Procedure Name Priority Date/Time Associated Diagnosis Comments ELECTROCARDIOGRAM (NON MIDMARK ACQUIRED) Routine 06/11/2024 8:36 AM CDT Essential hypertension HEPATITIS C ANTIBODY Routine 11/10/2021 7:40 AM CDT Need for hepatitis C screening test CT ABD+PEL WWO CON Routine 10/06/2020 9: 44 AM CDT Malignant neoplasm of right kidney, except renal pelvis COLONOSCOPY Routine 05/02/2016 12:00 AM BOX ATTACHER from Last 3 Months or Most Recently Relevant to Health Maintenance Results * ELECTROCARDIOGRAM (06/11/2024 8:36 AM CDT) 06/11/2024 8:36 AM CDT Narrative [facility] - 06/13/2024 8:56 AM CDT [facility] Date: 2024-06-11 Pat Name: DAMI SAUCEDA Department: 108 Room: Gender: Male Cow Tender: : 1955 Requested By: ALY LARA Order Number: [id number] Reading MD: Aly Lara Measurements Intervals Jber Rate: 51 P: 69 IL: 159 QRS: 68 QRSD: 92 T: 11 QT: 420 QTc: 389 Interpretive Statements SINUS BRADYCARDIA Procedure Note Aly Lara MD - 06/13/2024 Elie Mendosa Test Date: 2024-06-11 Pat Name: DAMI SAUCEDA Department: 108 Room: Gender: Male Cow Tender: : 1955 Requested By: ALY LARA Order Number: [id number] Reading MD: Aly Lara Measurements Intervals Jber Rate: 51 P: 69 IL: 159 QRS: 68 QRSD: 92 T: 11 QT: 420 QTc: 389 Interpretive Statements SINUS BRADYCARDIA us Aly Lara MD PROCEDURES-ORDERABLE NO CHARGE F inal Result Performing Organization Address City/[facility]/ZIP Co de Phone Number [facility] * HEPATITIS C AB ([facility] ONLY) (11/10/2021 7:40 AM CDT) HEPATITIS C AB NON-REACTI VE NON-REACTI VE 11/10/2021 3:26 PM CDT [facility] 11/10/2021 7:40 AM CDT us [facility] Final Result Performing Organization Address City/[facility] Co de Phone Number [facility] [address] [place] [address], [place] [phone] * CT ABD+PEL WWO CON (10/06/2020 9:44 AM CDT) Anatomical Region Laterality Modality Abdomen Computed Tomogra phy 10/08/2020 10:4 6 AM CDT Impressions 10/08/2020 11:02 AM CDT IMPRESSION:===== 1. Prior right nephrectomy. No evidence of recurrent mass lesion or lymphadenopathy. 2. Tiny left renal cyst. 3. Diverticulosis. 4. Redemonstration of unusual shape and appearance of the gallbladder fundus with wall thickening. Possible underlying gallstone disease or adenomyomatosis but not well characterized on this exam. Consider correlation with gallbladder ultrasound. Referred By: LUIS POON Interpreted By: Jimmy Stephens MD, 10/08/2020 10:46 AM Narrative 10/08/2020 11:02 AM CDT EXAMINATION: CT Abdomen and pelvis with and without contrast EXAM DATE/TIME: 10/06/2020 8:43 AM REASON FOR EXAM: Right renal cell carcinoma status post nephrectomy. Follow-up. COMPARISON: 04/01/2020, 04/29/2019 TECHNIQUE: Contrast enhanced CT of the abdomen and pelvis was obtained before and after administration of intravenous contrast 100 mL Isovue 300. Automated exposure control was utilized for dose reduction. FINDINGS: Abdomen findings: Prior right nephrectomy. Associated surgical clips. No residual or recurrent mass lesion is demonstrated in the right renal fossa. No intra-abdominal adenopathy. Tiny cyst of the left kidney inferior pole. Again shown is a bilobed shape of the gallbladder with wall thickening of the gallbladder fundus. Possible gallstones but poorly characterized on this exam. Appearance is unchanged. The liver, spleen, pancreas, adrenal glands and IVC are unremarkable. Mild aortic atherosclerosis. Diverticulosis of the colon. Small bowel is unremarkable. Normal appendix visualized. Abdominal surgical scar noted. Likely very small hiatal hernia. Pelvis: The bladder and rectum are unremarkable. Prostate is identified, possible prior prostatectomy. Bilateral pelvic phleboliths are noted. No significant free pelvic fluid or adenopathy. Small fat-containing right inguinal hernia. There is a small intramuscular lipoma of the right iliopsoas. Minimal atelectasis in the visualized lung bases. Diffuse degenerative changes. Patchy sclerosis and coarsening of trabeculae of the right pelvis may represent manifestation of Paget's disease, unchanged in retrospect. Ankylosis of the sacroiliac joints. ===== Procedure Note Jimmy Stephens MD - 10/08/2020 EXAMINATION: CT Abdomen and pelvis with and without contrast EXAM DATE/TIME: 10/06/2020 8:43 AM REASON FOR EXAM: Right renal cell carcinoma status post nephrectomy.Follow-up. COMPARISON: 04/01/2020, 04/29/2019 TECHNIQUE: Contrast enhanced CT of the abdomen and pelvis was obtainedbefore and after administration of intravenous contrast 100 mL Isovue 300.Automated exposure control was utilized for dose reduction. FINDINGS: Abdomen findings: Prior right nephrectomy. Associated surgical clips. Noresidual or recurrent mass lesion is demonstrated in the right renalfossa. No intra- abdominal adenopathy. Tiny cyst of the left kidneyinferior pole. Again shown is a bilobed shape of the gallbladder withwall thickening of the gallbladder fundus. Possible gallstones but poorlycharacterized on this exam. Appearance is unchanged. The liver, spleen,pancreas, adrenal glands and IVC are unremarkable. Mild aorticatherosclerosis. Diverticulosis of the colon. Small bowel isunremarkable. Normal appendix visualized. Abdominal surgical scar noted.Likely very small hiatal hernia. Pelvis: The bladder and rectum are unremarkable. Prostate is identified,possible prior prostatectomy. Bilateral pelvic phleboliths are noted. Nosignificant free pelvic fluid or adenopathy. Small fat-containing rightinguinal hernia. There is a small intramuscular lipoma of the rightiliopsoas. Minimal atelectasis in the visualized lung bases. Diffuse degenerativechanges. Patchy sclerosis and coarsening of trabeculae of the rightpelvis may represent manifestation of Paget's disease, unchanged inretrospect. Ankylosis of the sacroiliac joints. ===== IMPRESSION:===== 1. Prior right nephrectomy. No evidence of recurrent mass lesion orlymphadenopathy. 2. Tiny left renal cyst. 3. Diverticulosis. 4. Redemonstration of unusual shape and appearance of the gallbladderfundus with wall thickening. Possible underlying gallstone disease oradenomyomatosis but not well characterized on this exam. Considercorrelation with gallbladder ultrasound. Referred By: LUIS POON Interpreted By: Jimmy Stephens MD, 10/08/2020 10:46 AM us Luis Poon MD CT Final Re sult * Colonoscopy (05/02/2016 12:00 AM BOX ATTACHER) 05/02/2016 05/02/2016 Narrative [facility] TO EPIC CONVERSION - 05/02/2016 12:00 AM BOX ATTACHER Documented hx of procedure Procedure Note Jenna Post MD - 01/19/2018 Documented hx of procedure us Generic Conversion Md POST GI PROCEDURE ORDERABLES Final Result [facility] TO EP[facility] CONVERSION from Last 3 Months or Most Recently Relevant to Health Maintenance Insurance Care Teams Fire Prevention Inspector Relationship Specialty Start Date End Date Citlali Gonzáles PA [address] [place] [address] PCP - General PHYSICIAN WET PROCESS ASSISTANT HEAD MILLER 07/10/17 Aly Lara MD [facility] [address] [place] [address] Bettye Rotary Driller Prospecting CARDIOVASCULAR DISEASE 08/17/15
--- OUTSIDE RECORDS SUMMARY | 2024-06-30 07:39 | XMS_ITS | Encounter Summary ---
Author Organization [facility] Address [address] [place] [address] Care Team Providers Care Hand Rug Braider Name Role Phone Dillon Hidalgo MD Unavailable Citlali Gonzáles Primary Care Provider [phone] Encounter Details Date Type Department Care Team (Late Contact Info) Description 04/04/2016 Abstract [facility] AT [address] [address] Kathy Dawson MA Social History Tobacco Use Types Packs/Day Years Used Date Smoking Tobacco: Former Cigarettes Q uit: 1980 Alcohol Use Standard Drinks/Week Comments Yes 0 (1 standard drink = 0.6 oz pur e alcohol) Drinks on the weekend Sex and Gender Information Value Date Recorded Sex Assigned at Not on file Legal Sex Male 1:46 AM CDT Gender Identity Not on file Sexual Orientation Not on file 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 file Not on file documented as of this encounter Plan of Treatment Upcoming Encounters Date Type Department Care Team (Late Contact Info) Description 06/10/2025 8:30 AM CDT Office Visit [facility] [address] [place] [address] Ora Mariee, ANP-BC [facility] [address] [place], [place] [phone] documented as of this encounter Procedures Procedure Name Priority Date/Time Associated Diagnosis Comments BASIC METABOLIC PANEL Routine 11/11/2017 CBC (OUTSIDE LAB) Routine 08/10/2015 COMPREHENSIVE METABOLIC PANEL Routine 08/10/2015 LIPID PANEL Routine 08/10/2015 documented in this encounter Results * BASIC METABOLIC PANEL (11/11/2017) SODIUM S/P/B 141 POTASSIUM S/P/B 4.1 CO2 25 CHLORIDE S/P/B 105 GLUCOSE 131 mg/dL CALCIUM S/P/B 9.2 BUN 20 CREATININE S/P/B 1.26 0.7 - 1.3 EGFR NON-AFR. AMER. 75 <=90 11/11/2017 us Doc [facility] Final Result * LIPID PANEL (08/10/2015) CHOLESTEROL 223 HDL 76 TRIGLYCERIDES 77 LDL (CALCULATED) 132 08/10/2015 us Doc [facility] Final Result * COMPREHENSIVE METABOLIC PANEL (08/10/2015) SODIUM S/P/B 141 POTASSIUM S/P/B 4.5 CO2 27 CHLORIDE S/P/B 105 GLUCOSE 93 CALCIUM S/P/B 9.1 BUN 23 CREATININE S/P/B 0.97 EGFR AFR. AMER. >60 EGFR NON-AFR. AMER. >60 ALKALINE PHOSPHATASE S/P/B 88 ALT 24 AST 24 BILIRUBIN TOTAL S/P/B 0.8 ALBUMIN S/P/B 4.4 3.5 - 5.0 TOTAL PROTEIN S/P/B 6.6 08/10/2015 us Doc [facility] Final Result * CBC (OUTSIDE LAB) (08/10/2015) WBC 3.8 HGB 14.5 HCT 40.2 PLT 183 08/10/2015 us Doc [facility] Abstract LAB-OUTSIDE/ABSTRACTED Final Result documented in this encounter Visit Diagnoses Not on filedocumented in this encounter Additional Health Concerns Infection Onset Date Last Indicated Resolved Time COVID-19 Rule Out 05/06/2021 05/06/2021 05/06/2021 12:28 PM LABORER LIVESTOCK COVID-19 Rule Out 06/20/2022 06/20/2022 06/20/2022 2:45 PM CDT COVID-19 Rule Out 03/12/2024 03/12/2024 03/12/2024 9:02 AM LABORER LIVESTOCK documented as of this encounter Care Teams Hand Rug Braider Relationship Specialty Start Date End Date Citlali Gonzáles PA [address] [place] [address] PCP - General PHYSICIAN MOLD DUMPER 07/10/17 Dillon Hidalgo MD [facility] [address] [place] [address] Bettye Corporate Auditor CARDIOVASCULAR DISEASE 08/17/15 documented as of this encounter
--- OUTSIDE RECORDS SUMMARY | 2024-06-30 07:41 | XMS_ITS | Encounter Summary ---
Author Organization [facility] Address [address] [place] [address] Care Team Providers Care Family Psychologist Name Role Phone Dillon Hidalgo MD Unavailable Citlali Gonzáles Primary Care Provider [phone] Encounter Details Date Type Department Care Team (Latest Contact Info) Description 10/10/2021 [employer]t Message Enc [facility] Multispecialty Care - [facility] [address] [facility], [address] [place] [phone] Geno Ravi, SHAYE [address] [facility] [address] [place], [place] [phone] Question regarding NM BONE SCAN WHOLE BODY WO SPECT Social History Tobacco Use Types Packs/Day Years Used Date Smoking Tobacco: Former Cigarettes Q uit: 1980 Smokeless Tobacco: Never Alcohol Use Standard Drinks/Week Comments Yes 0 (1 standard drink = 0.6 oz pur e alcohol) Drinks on the weekend PHQ-2 Answer Date Recorded PHQ-2 Score - If the patient scores above 3, please move on to questions 3-9 0 07/31/2021 Sex and Gender Information Value Date Recorded Sex Assigned at Not on file Legal Sex Male 1:46 AM CDT Gender Identity Not on file Sexual Orientation Not on file 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 No / Unsure 10/10/2021 7:43 AM CDT documented as of this encounter Plan of Treatment Upcoming Encounters Date Type Department Care Team (Late st Contact Info) Description 06/10/2025 8:30 AM CDT Office Visit [facility] [address] [place] [phone] Ora Mariee, ANP-BC [facility]. [facility] [address] [place], [place] [address] documented as of this encounter Visit Diagnoses Not on filedocumented in this encounter Additional Health Concerns Infection Onset Date Last Indicated Resolved Time COVID-19 Rule Out 06/20/2022 06/20/2022 06/20/2022 2:45 PM CDT COVID-19 Rule Out 03/12/2024 03/12/2024 03/12/2024 9:02 AM RRTS Assessment Noted Time PHQ-9 Depression Total Score: 0 12/01/19 21 11:45 AM CDT documented as of this encounter Care Teams Family Psychologist Relationship Specialty Start Date End Date Citlali Gonzáles PA [address] [place], [place] [phone] PCP - General PHYSICIAN X RAY SERVICE ENGINEER 07/10/17 Dillon Hidalgo MD [facility]. [facility] [address] [place], [place] [phone] Bettye Shift Engineer CARDIOVASCULAR DISEASE 08/17/15 documented as of this encounter
--- OUTSIDE RECORDS SUMMARY | 2024-06-30 07:41 | XMS_ITS | Encounter Summary ---
Author Organization [facility] Address [address] [place] [address] Care Team Providers Care Regional Service Manager Name Role Phone Dillon Hidalgo MD Unavailable Citlali Gonzáles Primary Care Provider [phone] Encounter Details Date Type Department Care Team (Late st Contact Info) Description 07/26/2021 [employer] Message [facility] [address] [place] [address] Citlali Gonzáels PA [address] [place] [address] Sciatica Social History Tobacco Use Types Packs/Day Years Used Date Smoking Tobacco: Former Cigarettes Q uit: 1979 Smokeless Tobacco: Never Alcohol Use Standard Drinks/Week Comments Yes 0 (1 standard drink = 0.6 oz pur e alcohol) Drinks on the weekend PHQ-2 Answer Date Recorded PHQ-2 Score - If the patient scores above 3, please move on to questions 3-9 0 06/21/2021 Sex and Gender Information Value Date Recorded [...] suspected to have Coronavirus/COVID-19? No / Unsure 07/28/2021 3:23 PM CDT documented as of this encounter Progress Notes * Leyda Moraes RN - 07/27/2021 9:21 AM CDT Please call patient to assist him with scheduling this appointment. Thank you! documented in this encounter Plan of Treatment Upcoming Encounters Date Type Department Care Team (Late st Contact Info) Description 06/10/2025 8:30 AM CDT [facility] [address] [place] [phone] Ora Mariee, ANP-BC [facility]. [facility] [address] [place], [place] [phone] documented as of this encounter Visit Diagnoses Not on filedocumented in this encounter Additional Health Concerns Infection Onset Date Last Indicated Resolved Time COVID-19 Rule Out 06/20/2022 06/20/2022 06/20/2022 2:45 PM CDT COVID-19 Rule Out 03/12/2024 03/12/2024 03/12/2024 9:02 AM BUSINESS SUPPORT SPECIALIST Assessment Noted Time PHQ-9 Depression Total Score: 0 12/01/19 21 11:45 AM CDT documented as of this encounter Care Teams Regional Service Manager Relationship Specialty Start Date End Date Citlali Gonzáles PA [address] [place] [address] PCP - General PHYSICIAN SLAB PULLER 07/10/17 Dillon Hidalgo MD Three [facility]. [facility] [address] [place], [place] [phone] Bettye Senior Training And Development Rep CARDIOVASCULAR DISEASE 08/17/15 documented as of this encounter
--- OUTSIDE RECORDS SUMMARY | 2024-06-30 07:41 | XMS_ITS | Encounter Summary ---
Author Organization [facility] Address [address] [place] [address] Care Team Providers Care Financial Counselor Name Role Phone Dillon Hidalgo MD Unavailable Jose Carlos Michael MD Primary Care Provider Unavailable Citlali Gonzáles Primary Care Provider [phone] Encounter Details Date Type Department Care Team (Late Contact Info) Description 08/04/2013 Abstract [facility] Conversion , Generic Conversion, Social History Tobacco Use Types Packs/Day Years Used Date Smoking Tobacco: Never Assessed Sex and Gender Information Value Date Recorded Sex Assigned at Not on file Legal Sex Male 1:46 AM CDT Gender Identity Not on file Sexual Orientation Not on file documented as of this encounter Plan of Treatment Upcoming Encounters Date Type Department Care Team (Late st Contact Info) Description 06/10/2025 8:30 AM CDT Office Visit [facility] [address] Ora Mariee, ANP-BC [address] [phone] documented as of this encounter Visit Diagnoses Not on filedocumented in this encounter Additional Health Concerns Infection Onset Date Last Indicated Resolved Time COVID-19 Rule Out 05/06/2021 05/06/2021 05/06/2021 12:28 PM BAKER BENCH COVID-19 Rule Out 06/20/2022 06/20/2022 06/20/2022 2:45 PM CDT COVID-19 Rule Out 03/12/2024 03/12/2024 03/12/2024 9:02 AM BAKER BENCH documented as of this encounter Care Teams Financial Counselor Relationship Specialty Start Date End Date Jose Carlos Michael MD [facility]. [facility] [address] [place] [address] PCP - General 08/04/13 08/16/15 Citlali Gonzáles, PA [address] [place] [address] PCP - General PHYSICIAN E LEARNING COORDINATOR 07/10/17 Dillon Hidalgo MD [facility]. [facility] [address] [place] [address] Bettye Hot Roller CARDIOVASCULAR DISEASE 08/17/15 documented as of this encounter
--- OUTSIDE RECORDS SUMMARY | 2024-06-30 07:41 | XMS_ITS | Encounter Summary ---
Author Organization [facility] Address [address] [place] [address] Care Team Providers Care Uke Driver Name Role Phone Dillon Hidalgo MD Unavailable Jose Carlos Michael MD Primary Care Provider Unavailable Citlali Gonzáles Primary Care Provider [phone] Encounter Details Date Type Department Care Team (Late Contact Info) Description 10/02/2007 Abstract [facility] Conversion , Generic Conversion, Social History [...] Description 06/10/2025 8:30 AM CDT Office Visit [facility] [address] [place] [address] Ora Mariee, ANP-BC [address] [phone] documented as of this encounter Visit Diagnoses Not on filedocumented in this encounter Additional Health Concerns Infection Onset Date Last Indicated Resolved Time COVID-19 Rule Out 05/06/2021 05/06/2021 05/06/2021 12:28 PM SPEECH PATHOLOGY ASSISTANT COVID-19 Rule Out 06/20/2022 06/20/2022 06/20/2022 2:45 PM CDT COVID-19 Rule Out 03/12/2024 03/12/2024 03/12/2024 9:02 AM SPEECH PATHOLOGY ASSISTANT documented as of this encounter Care Teams Uke Driver Relationship Specialty Start Date End Date Jose Carlos Michael MD [facility]. [facility] [address] [place] [address] PCP - General 08/04/13 08/16/15 Citlali Gonzáles, PA [address] [place] [address] PCP - General PHYSICIAN SOCIAL ECONOMIST 07/10/17 Dillon Hidalgo MD [facility]. [facility] [address] [place] [address] Bettye Specialist Field Engineer CARDIOVASCULAR DISEASE 08/17/15 documented as of this encounter
--- OUTSIDE RECORDS SUMMARY | 2024-06-30 07:41 | XMS_ITS | Encounter Summary ---
Author Organization [facility] Address [address] [place] [address] Care Team Providers Care Hydraulic Governor Assembler Name Role Phone Dillon Hidalgo MD Unavailable Jose Carlos Michael MD Primary Care Provider Unavailable Citlali Gonzáles Primary Care Provider [phone] Encounter Details Date Type Department Care Team (Late Contact Info) Description 10/12/2011 Abstract [facility] Conversion , Generic Conversion, Social History [...] Description 06/10/2025 8:30 AM CDT Office Visit [place] [facility] [address] Ora Mariee, ANP-BC [address] [phone] documented as of this encounter Visit Diagnoses Not on filedocumented in this encounter Additional Health Concerns Infection Onset Date Last Indicated Resolved Time COVID-19 Rule Out 05/06/2021 05/06/2021 05/06/2021 12:28 PM CONTRACTS SPECIALIST COVID-19 Rule Out 06/20/2022 06/20/2022 06/20/2022 2:45 PM CDT COVID-19 Rule Out 03/12/2024 03/12/2024 03/12/2024 9:02 AM CONTRACTS SPECIALIST documented as of this encounter Care Teams Hydraulic Governor Assembler Relationship Specialty Start Date End Date Jose Carlos Michael MD [facility]. [facility] [address] [place] [address] PCP - General 08/04/13 08/16/15 Citlali Gonzáles, PA [address] [place] [address] PCP - General PHYSICIAN DEPARTMENT STORE DOOR GREETER 07/10/17 Dillon Hidalgo MD [facility]. [facility] [address] [place] [address] Bettye Director Trade CARDIOVASCULAR DISEASE 08/17/15 documented as of this encounter
--- OUTSIDE RECORDS SUMMARY | 2024-06-30 07:41 | XMS_ITS | Encounter Summary ---
Author Organization [facility] Address [address] [place] [address] Care Team Providers Care Ticker Maintainer Name Role Phone Dillon Hidalgo MD Unavailable Jose Carlos Michael MD Primary Care Provider Unavailable Citlali Gonzáles Primary Care Provider [phone] Encounter Details Date Type Department Care Team (Late st Contact Info) Description 02/24/2003 Abstract [facility] Conversion , Generic Conversion, Social History [...] Description 06/10/2025 8:30 AM CDT Office Visit [place] [facility] [address] [place] [address] Ora Mariee, ANP-BC [address] [phone] documented as of this encounter Visit Diagnoses Not on filedocumented in this encounter Additional Health Concerns Infection Onset Date Last Indicated Resolved Time COVID-19 Rule Out 05/06/2021 05/06/2021 05/06/2021 12:28 PM CLINICAL REHAB LIAISON COVID-19 Rule Out 06/20/2022 06/20/2022 06/20/2022 2:45 PM CDT COVID-19 Rule Out 03/12/2024 03/12/2024 03/12/2024 9:02 AM CLINICAL REHAB LIAISON documented as of this encounter Care Teams Ticker Maintainer Relationship Specialty Start Date End Date Jose Carlos Michael MD [facility]. [facility] [address] [place] [address] PCP - General 08/04/13 08/16/15 Citlali Gonzáles, PA [address] [place] [address] PCP - General PHYSICIAN DRY GOODS CLERK 07/10/17 Dillon Hidalgo MD [facility]. [facility] [address] [place] [address] Bettye Telephone Information Clerk CARDIOVASCULAR DISEASE 08/17/15 documented as of this encounter
[2024-06-30 08:02] LABS: Estimated Glomerular Filt Rate 40
[2024-06-30 09:55] LABS: Prostate Specific Antigen 0.1 ng/mL (< OR = 4.0)
[2024-07-02 13:18] LABS: Estimated Glomerular Filt Rate 40
== END 2024-06-30 07:34 | disposition home or self-care (01) ==
PROVIDERS: Visit Provider Urology
DX: C64.1 Malignant neoplasm of right kidney, except renal pelvis (principal); C61 Malignant neoplasm of prostate; K82.8 Other specified diseases of gallbladder; Z90.5 Acquired absence of kidney
CPT/HCPCS: 36415; 71046; 74170; 84153; Q9967